=== PATIENT | male | born 1990 | race Caucasian/White ===

== ENCOUNTER 2017-04-07 15:07 | Emergency (ER) | payer SELFPAY ==
[2017-04-07] VITALS (8 sets, daily range): BP systolic 122–131; BP diastolic 61–77; PULSE 88–121; RESP 16–18; TEMP 98.2–98.4; O2SAT 96–99
[2017-04-07] MEDS ORDERED: SODIUM CHLOR 0.9% 1000 ML INJ 1,000 ML IV SCH (15:16)
--- NOTE | 2017-04-07 15:18 | PD ---
HPI Chief Complaint: OD/ Ingestion Time Seen by Provider: 15:16 Travel History International Travel<30 days: No Contact w/Intl Traveler<30days: No Traveled to known affect area: No History of Present Illness HPI Patient of unknown identity was brought in by EMS for heroin overdose. Patient lives in grandmother's house and called 911. She had found him unresponsive in his bed with multiple needles around with drugs. He was given 0.4 of Narcan for his unresponsive state and respiratory failure. His response was minimal and initially he required to be assist ventilated with BVM. By the time they got closer to the hospital patient started to breathe spontaneously and he was put on a nonrebreather mask. He was still very lethargic and diaphoretic. He is unable to give any significant history. There were multiple needles attached to the syringe in his pocket. He was tachycardic upon arrival. As per the grandmother to the paramedics patient has a long history of opiate addiction in the past. He has required Narcan. He was clean for 6 months. [facility], [facility] Past Medical History Narrative Medical List of his past medical, surgical, social and family history was reviewed from the nursing note. Social History Tobacco Use: Yes Allergies-Medications (Allergen,Severity, Reaction): Coded Allergies: No Known Allergies (Unverified , 04/07/17) Comments Unknown Narrative Medication Unknown Review of Systems Except as stated in HPI: all other systems reviewed are Neg Physical Exam Narrative GENERAL: Unresponsive, shallow respirations, moderate distress SKIN: Cool and diaphoretic. Acne HEAD: Atraumatic. Normocephalic. EYES: Pupils equal and round. No scleral icterus. No injection or drainage. ENT: No nasal bleeding or discharge. Mucous membranes pink and moist. NECK: Trachea midline. No JVD. CARDIOVASCULAR: Regular rate and rhythm. No murmur appreciated. RESPIRATORY: No accessory muscle use. Clear to auscultation. Breath sounds equal bilaterally. GASTROINTESTINAL: Abdomen soft, non-tender, nondistended. Hepatic and splenic margins not palpable. MUSCULOSKELETAL: No obvious deformities. No clubbing. No cyanosis. No edema. NEUROLOGICAL: GCS of 10 .No obvious cranial nerve deficits. Motor grossly within normal limits. Nonverbal PSYCHIATRIC: Unable to assess Data Data Last Documented VS Vital Signs Date Time Temp Pulse Resp B/P Pulse Ox O2 Delivery O2 Flow Rate FiO2 04/07/17 21:30 94 19 125/68 99 04/07/17 20:06 Room Air 04/07/17 19:41 2.00 04/07/17 15:20 98.2 Orders Electrocardiogram (04/07/17 15:16) Complete Blood Count With Diff (04/07/17 15:16) Comprehensive Metabolic Panel (04/07/17 15:16) Urinalysis - C+S If Indicated (04/07/17 15:16) Chest, Single Ap (04/07/17 15:16) Ct Brain W/O Iv Contrast(Rout) (04/07/17 15:16) Blood Glucose (04/07/17 15:16) Ecg Monitoring (04/07/17 15:16) Iv Access Insert/Monitor (04/07/17 15:16) Oximetry (04/07/17 15:16) Naloxone Inj (Narcan Inj) (04/07/17 15:30) Sodium Chloride 0.9% Flush (Ns Flush) (04/07/17 15:30) Sodium Chlor 0.9% 1000 Ml Inj (Ns 1000 M (04/07/17 15:16) Drug Screen, Random Urine (04/07/17 15:16) Alcohol (Ethanol) (04/07/17 15:16) Sodium Chlor 0.9% 1000 Ml Inj (Ns 1000 M (04/07/17 17:15) Ibuprofen (Motrin) (04/07/17 20:00) Labs Laboratory Tests Test 04/07/17 04/07/17 15:45 15:50 Urine Color YELLOW Urine Turbidity CLEAR Urine pH 5.5 Urine Specific [place] 1.013 Urine Protein 30 mg/dL Urine Glucose (UA) 300 mg/dL Urine Ketones NEG mg/dL Urine Occult Blood NEG Urine Nitrite NEG Urine Bilirubin NEG Urine Urobilinogen LESS THAN 2.0 MG/DL Urine Leukocyte Esterase NEG Urine RBC LESS THAN 1 /hpf Urine WBC 1 /hpf Urine Squamous Epithelial <1 /hpf Cells Urine Hyaline Casts 49 /lpf Urine Mucus FEW /lpf Microscopic Urinalysis Comment CATH-CULT NOT IND Sodium Level 137 MEQ/L Potassium Level 3.7 MEQ/L Chloride Level 102 MEQ/L Carbon Dioxide Level 24.9 MEQ/L Anion Gap 10 MEQ/L Blood Urea Nitrogen 14 MG/DL Creatinine 1.48 MG/DL Estimat Glomerular Filtration 41 ML/MIN Rate Random Glucose 240 MG/DL Calcium Level 8.3 MG/DL Total Bilirubin 0.4 MG/DL Aspartate Amino Transf 40 U/L (AST/SGOT) Alanine Aminotransferase 57 U/L (ALT/SGPT) Alkaline Phosphatase 69 U/L Total Protein 7.3 GM/DL Albumin 3.7 GM/DL Urine Opiates Screen POS Urine Barbiturates Screen NEG Urine Amphetamines Screen NEG Urine Benzodiazepines Screen NEG Urine Cocaine Screen NEG Urine Cannabinoids Screen NEG Ethyl Alcohol Level 4 MG/DL White Blood Count 8.8 TH/MM3 Red Blood Count 4.90 MIL/MM3 Hemoglobin 14.9 GM/DL Hematocrit 43.1 % Mean Corpuscular Volume 88.0 FL Mean Corpuscular Hemoglobin 30.3 PG Mean Corpuscular Hemoglobin 34.5 % Concent Red Cell Distribution Width 12.8 % Platelet Count 265 TH/MM3 Mean Platelet Volume 9.2 FL Neutrophils (%) (Auto) 82.0 % Lymphocytes (%) (Auto) 12.2 % Monocytes (%) (Auto) 5.2 % Eosinophils (%) (Auto) 0.4 % Basophils (%) (Auto) 0.2 % Neutrophils # (Auto) 7.2 TH/MM3 Lymphocytes # (Auto) 1.1 TH/MM3 Monocytes # (Auto) 0.5 TH/MM3 Eosinophils # (Auto) 0.0 TH/MM3 Basophils # (Auto) 0.0 TH/MM3 CBC Comment DIFF FINAL Differential Comment MDM Medical Decision Making Medical Screen Exam Complete: Yes Emergency Medical Condition: Yes Medical Record Reviewed: Yes Interpretation(s) Twelve-lead EKG was reviewed by me. Normal sinus rhythm, normal axis, tachycardia, nonspecific ST-T wave changes. Heart rate of 118 bpm. Differential Diagnosis Heroin overdose, benzo overdose, intracranial bleed Narrative Course 3:31 PM patient was given 4 mg of IV Narcan upon arrival which made him wake up more. He still continues to be a little lethargic. He was switched to nasal cannula. Patient is getting 1 L of IV fluid bolus. Awaiting for blood test and urine drug screen. He is being monitored currently. 6:22 PM patient continues to be drowsy at this point. He wakes up upon calling his name but drowsy. He cannot be discharged at this point. I will let him sleep it off so that he can be discharged when he is awake enough. His family is in the waiting room. Patient does not want to see his family. 7:27 PM patient has been signed over to the oncoming ER physician. Critical Care Narrative Aggregate critical care time was 45 minutes. Time to perform other separately billable procedures was not included in the critical care time. My time did not include minutes spent treating any other patients simultaneously or on activities that did not directly contribute to the patient's treatment. The services I provided to this patient were to treat and/or prevent clinically significant deterioration that could result in: Opiate overdose, respiratory depression, Narcan administration, respiratory monitoring I provided critical care services requiring my management, as noted below: Chart data review, documentation time, medication orders and management, vital sign assessments/reviewing monitor data, ordering and reviewing lab tests, ordering and interpreting/reviewing x-rays and diagnostic studies, care of the patient and discussion of the patient with the admitting physicians. Procedures EKG Prior to Arrival: No Diagnosis Primary Impression: Opiate overdose Qualified Code: T40.601A - Opiate overdose, accidental or unintentional, initial encounter Layo Lopez MD Apr 07, 2017 15:18
[2017-04-07] MEDS ORDERED: SODIUM CHLORIDE 0.9% FLUSH 5 ML FLUSH IV FLUSH PRN (15:30)
[2017-04-07] MEDS ORDERED: NALOXONE HCL 2 MG/2 ML VIAL IV ONE (15:30)
--- NOTE | 2017-04-07 16:06 | RADRPT ---
EXAM DATE/TIME: 04/07/2017 15:13 [facility] COMPARISON: No previous studies available for comparison. INDICATIONS : Short of breath, poss OD. MEDICAL HISTORY : None. SURGICAL HISTORY : None. ENCOUNTER: Initial ACUITY: 1 day PAIN SCORE: 0/10 LOCATION: Bilateral chest FINDINGS: Exam is motion degraded. A single view of the chest demonstrates the lungs to be symmetrically aerate d without evidence of mass, infiltrate or effusion. The cardiomediastinal contours are unremarkable. Osseous structures are intact. CONCLUSION: No acute disease. Raymon Wade Jr., MD on April 07, 2017 at 16:03 Board Certified Radiologist. This report was verified electronically.
[2017-04-07 16:35] LABS: AUTOMATED NEUTROPHIL # 7.2 TH/MM3 (1.8-7.7); BASOPHIL % 0.2 % (0.0-2.0); EOSINOPHIL % 0.4 % (0.0-4.0); HEMATOCRIT 43.1 % (39.0-51.0); HEMO FLAGS DIFF FINAL; LYMPH % 12.2 % (9.0-44.0); LYMPHOCYTE # 1.1 TH/MM3 (1.0-4.8); MEAN CORPUSCULAR HEMOGLOBIN 30.3 PG (27.0-34.0); MEAN CORPUSCULAR HGB CONC 34.5 % (32.0-36.0); MONO % 5.2 % (0.0-8.0); PLATELET COUNT 265 TH/MM3 (150-450); RED CELL DISTRIBUTION WIDTH 12.8 % (11.6-17.2); WHITE BLOOD COUNT 8.8 TH/MM3 (4.0-11.0)
[2017-04-07 16:38] LABS: ALT (GPT) 57 U/L (12-78); ANION GAP 10 MEQ/L (5-15); AST (GOT) 40 U/L (15-37); BICARBONATE 24.9 MEQ/L (21.0-32.0); BLOOD UREA NITROGEN 14 MG/DL (7-18); CHLORIDE 102 MEQ/L (98-107); GLOMERULAR FILTRATION RATE 41 ML/MIN (>89); POTASSIUM 3.7 MEQ/L (3.5-5.1); SODIUM (NA) 137 MEQ/L (136-145)
[2017-04-07 16:39] LABS: BLOOD, URINE NEG (NEG); COMMENT (UR) CATH-CULT NOT IND; CULTURE IF INDICATED CATH CULTURE NOT IND; GLUCOSE,URINE 300 mg/dL (NEG); HYALINE CAST, URINE 49 /lpf (RARE); KETONE, URINE NEG (NEG); MUCUS URINE FEW /lpf (OCC); NITRITE,URINE NEG (NEG); PH, URINE 5.5 (5.0-8.5); SQUAMOUS EPITHELIAL CELL URINE <1 /hpf (0-5); URINE COLOR YELLOW (YELLW/STRAW)
[2017-04-07 16:41] LABS: ALKALINE PHOSPHATASE 69 U/L (45-117); TOTAL BILIRUBIN ADULT 0.4 MG/DL (0.2-1.0)
--- NOTE | 2017-04-07 16:56 | RADRPT ---
EXAM DATE/TIME: 04/07/2017 16:36 [facility] COMPARISON: No previous studies available for comparison. INDICATIONS : Found at home unresponsive RADIATION DOSE: 51.43 CTDIvol (mGy) MEDICAL HISTORY : None SURGICAL HISTORY : None. ENCOUNTER: Initial ACUITY: 1 day PAIN SCALE: 0/10 LOCATION: cranial TECHNIQUE: Multiple contiguous axial images were obtained of the head. Using automated exposure control and adj ustment of the mA and/or kV according to patient size, radiation dose was kept as low as reasonably a chievable to obtain optimal diagnostic quality images. DICOM format image data is available electro nically for review and comparison. FINDINGS: CEREBRUM: The ventricles are normal for age. No evidence of midline shift, mass lesion, hemorrhage or acute in farction. No extra-axial fluid collections are seen. POSTERIOR FOSSA: The cerebellum and brainstem are intact. The 4th ventricle is midline. The cerebellopontine angle i s unremarkable. EXTRACRANIAL: The visualized portion of the orbits is intact. There is a mucous retention cyst within the left maxi llary sinus. SKULL: The calvaria is intact. No evidence of skull fracture. CONCLUSION: 1. No acute intracranial abnormality. 2. Mucous retention cyst within the left maxillary sinus. Aman Maradiaga MD on April 07, 2017 at 16:53 Board Certified Radiologist. This report was verified electronically.
[2017-04-07 17:04] LABS: ALCOHOL 4 MG/DL (0-5)
[2017-04-07] MEDS ORDERED: SODIUM CHLOR 0.9% 1000 ML INJ 1,000 ML IV ONE (17:15)
--- NOTE | 2017-04-07 19:44 | PD ---
Physical Exam Narrative General: The patient is well-developed well-nourished male, sleeping soundly on my arrival to the room, however easily arousable to voice and able to answer questions. Head and Neck exam: Head is normocephalic atraumatic. Eyes: EOMI, pupils are equal round and reactive to light. Nose: Midline septum with pink mucous membranes Mouth: Dentition unremarkable. Moist mucus membranes. Posterior oropharynx is not erythematous. No tonsillar hypertrophy. Uvula midline. Airway patent. Neck: No palpable lymphadenopathy. No nuchal rigidity. No thyromegaly. Cardiovascular: Regular rate and rhythm without murmurs, gallops, or rubs. No pulse deficit to the extremities. Lungs: Clear to auscultation bilaterally. No wheezes, rhonchi, or rales. Abdomen: Soft, without tenderness to palpation in all 4 quadrants of the abdomen. No guarding, rebound, or rigidity. Normal bowel sounds are audible. No tenderness on palpation of McBurney's point. Extremities: No clubbing, cyanosis, or edema. 2+ pulses in all 4 extremities. No calf tenderness on palpation. Neurologic Exam: Grossly nonfocal. The patient is oriented to person and place. The patient is easily arousable to voice and able to follow commands, answer questions. Skin Exam: No rash noted. Intact skin that is warm and dry. Data Data Last Documented VS Vital Signs Date Time Temp Pulse Resp B/P Pulse Ox O2 Delivery O2 Flow Rate FiO2 04/07/17 17:55 88 16 125/61 97 Nasal Cannula 4 04/07/17 15:20 98.2 Orders Electrocardiogram (04/07/17 15:16) Complete Blood Count With Diff (04/07/17 15:16) Comprehensive Metabolic Panel (04/07/17 15:16) Urinalysis - C+S If Indicated (04/07/17 15:16) Chest, Single Ap (04/07/17 15:16) Ct Brain W/O Iv Contrast(Rout) (04/07/17 15:16) Blood Glucose (04/07/17 15:16) Ecg Monitoring (04/07/17 15:16) Iv Access Insert/Monitor (04/07/17 15:16) Oximetry (04/07/17 15:16) Naloxone Inj (Narcan Inj) (04/07/17 15:30) Sodium Chloride 0.9% Flush (Ns Flush) (04/07/17 15:30) Sodium Chlor 0.9% 1000 Ml Inj (Ns 1000 M (04/07/17 15:16) Drug Screen, Random Urine (04/07/17 15:16) Alcohol (Ethanol) (04/07/17 15:16) Sodium Chlor 0.9% 1000 Ml Inj (Ns 1000 M (04/07/17 17:15) Ibuprofen (Motrin) (04/07/17 20:00) Labs Laboratory Tests Test 04/07/17 04/07/17 15:45 15:50 Urine Color YELLOW Urine Turbidity CLEAR Urine pH 5.5 Urine Specific [place] 1.013 Urine Protein 30 mg/dL Urine Glucose (UA) 300 mg/dL Urine Ketones NEG mg/dL Urine Occult Blood NEG Urine Nitrite NEG Urine Bilirubin NEG Urine Urobilinogen LESS THAN 2.0 MG/DL Urine Leukocyte Esterase NEG Urine RBC LESS THAN 1 /hpf Urine WBC 1 /hpf Urine Squamous Epithelial <1 /hpf Cells Urine Hyaline Casts 49 /lpf Urine Mucus FEW /lpf Microscopic Urinalysis Comment CATH-CULT NOT IND Sodium Level 137 MEQ/L Potassium Level 3.7 MEQ/L Chloride Level 102 MEQ/L Carbon Dioxide Level 24.9 MEQ/L Anion Gap 10 MEQ/L Blood Urea Nitrogen 14 MG/DL Creatinine 1.48 MG/DL Estimat Glomerular Filtration 41 ML/MIN Rate Random Glucose 240 MG/DL Calcium Level 8.3 MG/DL Total Bilirubin 0.4 MG/DL Aspartate Amino Transf 40 U/L (AST/SGOT) Alanine Aminotransferase 57 U/L (ALT/SGPT) Alkaline Phosphatase 69 U/L Total Protein 7.3 GM/DL Albumin 3.7 GM/DL Urine Opiates Screen POS Urine Barbiturates Screen NEG Urine Amphetamines Screen NEG Urine Benzodiazepines Screen NEG Urine Cocaine Screen NEG Urine Cannabinoids Screen NEG Ethyl Alcohol Level 4 MG/DL White Blood Count 8.8 TH/MM3 Red Blood Count 4.90 MIL/MM3 Hemoglobin 14.9 GM/DL Hematocrit 43.1 % Mean Corpuscular Volume 88.0 FL Mean Corpuscular Hemoglobin 30.3 PG Mean Corpuscular Hemoglobin 34.5 % Concent Red Cell Distribution Width 12.8 % Platelet Count 265 TH/MM3 Mean Platelet Volume 9.2 FL Neutrophils (%) (Auto) 82.0 % Lymphocytes (%) (Auto) 12.2 % Monocytes (%) (Auto) 5.2 % Eosinophils (%) (Auto) 0.4 % Basophils (%) (Auto) 0.2 % Neutrophils # (Auto) 7.2 TH/MM3 Lymphocytes # (Auto) 1.1 TH/MM3 Monocytes # (Auto) 0.5 TH/MM3 Eosinophils # (Auto) 0.0 TH/MM3 Basophils # (Auto) 0.0 TH/MM3 CBC Comment DIFF FINAL Differential Comment [facility] Medical Record Reviewed: Yes Supervised Visit with BANDAR: No Interpretation(s) Last Impressions Head CT 04/07/171515 Signed Impressions: Service Date/Time: Friday, April 07, 2017 16:36 - CONCLUSION: 1. No acute intracranial abnormality. 2. Mucous retention cyst within the left maxillary sinus. Aman Maradiaga MD Chest X-Ray 04/07/171515 Signed Impressions: Service Date/Time: Friday, April 07, 2017 15:13 - CONCLUSION: No acute disease. Raymon Wade Jr., MD Narrative Course During the course of the patients emergency department visit, the patients history, examination, and differential diagnosis were reviewed with the patient. The patient had IV access obtained and blood work sent for analysis. The patient's case was checked out to me by Dr. Lopez. Please see her complete history and physical. She checked the patient's case out to me at the conclusion of her shift. The patient reportedly accidentally overdosed on opiates. The patient was being observed for any recurrence and respiratory depression or altered mentation. The patient was initially provided normal saline 1 L IV fluid bolus which was repeated 1, Narcan 4 mg IV which was administered at approximately 1539. As the patient became more awake and alert he began to report having bilateral foot pain and was given ibuprofen 400 mg by mouth 1. The patients laboratory studies were reviewed and remarkable for a white count of 8.8, hemoglobin 14.9, platelets 265 with 82 neutrophils, CMP is remarkable for creatinine 1.48, glucose 240, calcium 8.3, AST 40, urinalysis shows 30 protein, 300 glucose, urine drug screen is positive for opiates, alcohol 4. Radiology studies were reviewed and remarkable for a chest x-ray that shows no acute disease. CT scan of the brain shows no acute intracranial abnormality, mucous retention cyst with in the left maxillary sinus. The patient was observed and continued to be easily arousable. The patient will be discharged home with his family. The patient is resting comfortably and feels better, is alert and in no distress. The patients results and examination findings were discussed with the patient. The repeat examination is unremarkable and benign. The history, exam, diagnostic testing, and current condition do not suggest any significant pathology to warrant further testing, continued ED treatment, admission, or surgical evaluation at this point. The vital signs have been stable. The patient does not have uncontrollable pain, intractable vomiting, or other significant symptoms. The patient's condition is stable and appropriate for discharge. The patient will pursue further outpatient evaluation with a primary care physician or other designated or consulting physician as indicated in the discharge instructions. The patient expressed understanding and was agreeable with this plan. Diagnosis Primary Impression: Opiate overdose Qualified Code: T40.601A - Opiate overdose, accidental or unintentional, initial encounter Referrals: Primary Care Physician Patient Instructions: General Instructions, Opioid Overdose (ED) Disposition: 01 DISCHARGE HOME Condition: Stable Therese Hart MD Apr 07, 2017 19:44
[2017-04-07] MEDS ORDERED: IBUPROFEN 400 MG TAB PO ONE (20:00)
--- NOTE | 2017-04-09 08:51 | EKG ---
Date Performed: 04/07/2017 Time Performed: 15:11:57 PTAGE: 89 years EKG: SINUS TACHYCARDIA WITH OCCASIONAL SUPRAVENTRICULAR PREMATURE COMPLEXES ABNORMAL RHYTHM ECG INTERPRETATION BASED ON A DEFAULT AGE OF 41 YEARS NO PREVIOUS TRACING DOCTOR: Jay Arboleda Interpretating Date/Time 04/09/2017 08:49:34
== END 2017-04-07 21:33 | disposition home or self-care (01) ==
LOC: NEPE 15:07 → EDBD 15:07 → NEPE 21:33
DX: T40.1X1A Poisoning by heroin, accidental (unintentional), initial encounter (principal); R40.20 Unspecified coma; Y92.009 Unspecified place in unspecified non-institutional (private) residence as the place of occurrence of the external cause
CPT/HCPCS: 70450; 71010; 80053; 80307; 81001; 85025; 93005; 96361; 96374; 99291; J2310; J7030